=== PATIENT | male | born 1985 | race African-American/Black ===

== ENCOUNTER 2017-01-20 05:41 | Inpatient (IN) | payer MEDICAID ==
--- NOTE | 2017-01-20 09:40 | NUR ---
RN NOTES PT WAS BROUGHT ONTO THE FLOOR BY EMT'S FROM [facility]. PT IS ALERT AND ORIENTED, ON RA, RESPIRATIONS ARE EVEN AND UNLABORED. SAFETY MEASURES ARE IN PLACE, CALL LIGHT IS IN REACH. WILL CONTINUE TO MONITOR.
[2017-01-20] MEDS ORDERED: IV NS 0.9% 1,000 ML IV PRN (11:14)
[2017-01-20] MEDS ORDERED: MAGNESIUM HYDROXIDE 30 ML UDC PO PRN (11:30)
[2017-01-20] MEDS ORDERED: HYDROXYUREA 500 MG CAPSULE PO SCH (11:30)
[2017-01-20] MEDS ORDERED: FOLIC ACID 1 MG TABLET PO SCH (11:30)
[2017-01-20] MEDS ORDERED: ASPIRIN 81 MG TAB.CHEW PO SCH (11:30)
[2017-01-20] MEDS ORDERED: CLOPIDOGREL BISULFATE 75 MG TABLET PO SCH (11:30)
[2017-01-20] MEDS ORDERED: ACETAMINOPHEN 325 MG TABLET PO PRN (11:30)
[2017-01-20] MEDS ORDERED: HYDROMORPHONE INJ 2 MG/ML DISP.SYRIN IV PRN ×2 (11:30→12:30)
[2017-01-20] MEDS ORDERED: ONDANSETRON HCL/PF 4 MG/2 ML VIAL IVP PRN ×2 (11:30→12:30)
[2017-01-20] MEDS ORDERED: Z GUARD REMEDY 2 OZ OINT TP PRN (11:30)
[2017-01-20] MEDS ORDERED: ZOLPIDEM TARTRATE 5 MG TABLET PO PRN (11:30)
[2017-01-20] MEDS ORDERED: MAG HYDROX/AL HYDROX/SIMETH 30 ML UDC PO PRN (11:30)
[2017-01-20] MEDS ORDERED: QUETIAPINE FUMARATE 100 MG TABLET PO SCH (11:30)
[2017-01-20 12:27] LABS: EOSINOPHILS # (AUTO) 0.2 /CMM (0.0-0.7); EOSINOPHILS % (AUTO) 2.7 % (0.0-6.0); HEMATOCRIT 30 % (39-51); HEMOGLOBIN 9.5 g/dL (13.5-17.5); LYMPHOCYTES # (AUTO) 1.5 /CMM (0.8-4.8); LYMPHOCYTES % (AUTO) 21.6 % (20.0-44.0); MEAN CORPUSCULAR HEMOGLOBIN 27 PG (26.0-33.0); MEAN CORPUSCULAR HGB CONC 32 g/dl (31.0-36.0); MEAN CORPUSCULAR VOLUME 85 fL (80-96); MONOCYTES # (AUTO) 0.6 /CMM (0.1-1.30); MONOCYTES % (AUTO) 8.2 % (2.0-12.0); NEUTROPHILS # (AUTO) 4.6 /CMM (1.8-8.9); NEUTROPHILS % (AUTO) 67.5 % (43.0-81.0); PLATELET COUNT (AUTO) 292 /CMM (150-450); RDW COEFFICIENT OF VARIATION 18.6 (11.5-15.0); RED BLOOD CELL COUNT(AUTO) 3.55 MIL/uL (4.5-6.0); WHITE BLOOD COUNT (AUTO) 6.8 K/uL (4.3-11.0)
[2017-01-20 12:45] LABS: RETICULOCYTE COUNT 2.1 % (0.6-2.5)
[2017-01-20 12:49] LABS: INR 0.96 (0.87-1.13)
[2017-01-20] MEDS ORDERED: VANCOMYCIN 1.25 GM in IV D5W 500 ML IV SCH (13:00)
[2017-01-20] MEDS ORDERED: HYDROMORPHONE HCL 2 MG TABLET PO PRN ×2 (13:00→13:30)
[2017-01-20 13:11] LABS: TROPONIN I < 0.017 ng/mL (0.00-0.056)
[2017-01-20 13:15] LABS: ALANINE AMINOTRANSFERASE 32 U/L (12-78); ALBUMIN 3.8 g/dL (3.4-5.0); ALKALINE PHOSPHATASE 77 U/L (46-116); ASPARTATE AMINOTRANSFERASE 25 U/L (15-37); BILIRUBIN,TOTAL 0.3 mg/dL (0.2-1.0); CALCIUM, SERUM 9.2 mg/dL (8.5-10.1); CARBON DIOXIDE 27 mmol/L (21-32); CHLORIDE 104 mmol/L (98-107); CREATININE 0.9 mg/dL (0.6-1.3); GLUCOSE 114 mg/dL (74-106); MAGNESIUM 1.9 mg/dL (1.8-2.4); POTASSIUM 3.9 mmol/L (3.5-5.1); SODIUM SERUM 141 mmol/L (136-145); TOTAL PROTEIN, SERUM 7.8 g/dL (6.4-8.2); UREA NITROGEN, BLOOD 8 mg/dL (7-18)
[2017-01-20 13:40] LABS: CHOLESTEROL 129 mg/dL (<200); HDL CHOLESTEROL 56 mg/dL (40-60); LDL 62 mg/dL (0-99); TRIGLYCERIDES 70 mg/dL (30-150)
--- NOTE | 2017-01-20 13:44 | NUR ---
patient refuse CAT SCAN CHEST ANGIOGRAM per KOLBY SWEENEY
--- NOTE | 2017-01-20 14:38 | NUR ---
RN NOTES PT LEFT AGAINST MEDICAL ADVICE AND LEFT IN A TAXI. PT WAS INFORMED BY DR. TRAVIS THAT HE SHOULD STAY TO BETTER DIAGNOSE WHAT THE PROBLEM IS. PT STATED HE UNDERSTOOD BUT STILL WANTED TO LEAVE. AMA FORM WAS SIGNED AND BELONGINGS WERE SENT WITH PATIENT.
[2017-01-20] MEDS ORDERED: ATORVASTATIN 10 MG TABLET PO SCH (22:00)
[2017-01-21] MEDS ORDERED: PANTOPRAZOLE 40 MG TABLET.DR PO SCH (07:30)
== END 2017-01-20 14:30 | disposition left against medical advice (07) | DRG 203 ==
LOC: TELE 09:31
PROVIDERS: ADMIT Internal Medicine; ATTEND Internal Medicine
PROC: 02HV33Z Insertion of Infusion Device into Superior Vena Cava, Percutaneous Approach (ICD-10-PCS; principal; 2017-01-20)
DX: M94.0 Chondrocostal junction syndrome [Tietze] (principal); M86.9 Osteomyelitis, unspecified; I25.10 Atherosclerotic heart disease of native coronary artery without angina pectoris; E66.01 Morbid (severe) obesity due to excess calories; Z98.61 Coronary angioplasty status; E78.5 Hyperlipidemia, unspecified; Z86.711 Personal history of pulmonary embolism; K21.9 Gastro-esophageal reflux disease without esophagitis; Z79.2 Long term (current) use of antibiotics; Z76.5 Malingerer [conscious simulation]
CPT/HCPCS: 36415; 80053-TC; 80061-TC; 83735-TC; 84100-TC; 84484-TC; 85025-TC; 85045-TC; 85610-TC; 85652-TC; J1170; J3370; J7030; J7060; Z7610